=== PATIENT | male | born 1985 | race Caucasian/White ===

== ENCOUNTER 2019-07-07 20:51 | Inpatient (IN) | payer MEDICARE, OTHER ==
[~2019-07-07] VITALS: Ht 175.3 cm; Wt 86.4 kg
[2019-07-07 22:01] LABS: Basophils # (auto) 0.1 10 ^3/uL (0-0.2); Basophils % (auto) 0.6 % (0.0-2.0); Eosinophils # (auto) 0 10 ^3/uL (0-0.8); Eosinophils % (auto) 0.1 % (0.0-7.0); Hematocrit 46.1 % (41.0-53.0); Hemoglobin 15.3 g/dL (13.5-17.5); Lymphocytes # (auto) 0.6 10 ^3/uL (0.4-5.4); Lymphocytes % (auto) 3.1 % (10.0-50.0); Mean Corpuscular Hgb Conc. 33.2 g/dL (32.0-36.0); Mean Corpuscular Volume 90.5 fL (80.0-100.0); Monocytes # (auto) 1.4 10 ^3/uL (0-1.3); Monocytes % (auto) 6.8 % (0.0-12.0); Neutrophils % (auto) 89.4 % (37.0-80.0); Platelet Count (auto) 292 10^3/uL (140-450); Red Cell Distribution Width 13.2 % (11.8-14.3); White Blood Cell 20.1 10^3/uL (4.4-10.8)
[2019-07-07 22:13] LABS: Albumin 2.9 g/dL (3.4-5.0); Calcium 8.7 mg/dL (8.5-10.1); Magnesium 2.1 mg/dL (1.6-2.6); Potassium 3.7 mmol/L (3.5-5.1)
[2019-07-07 22:17] LABS: Bilirubin, Total 1.5 mg/dL (0.2-1.0); Total Protein 7.8 g/dL (6.4-8.2)
[2019-07-07 22:28] LABS: BUN/Creatinine Ratio 12.3
[2019-07-08] MEDS ORDERED: MORPHINE SULFATE 4 MG/ML SYR/VIAL IV ONE (00:15)
[2019-07-08] MEDS ORDERED: SODIUM CHLORIDE 0.9% 1,000 ML IV ONE (00:15)
[2019-07-08] MEDS ORDERED: InsuLIN REG 1unit/0.01ml Soln (100units/ml) IV ONE (00:15)
[2019-07-08] MEDS ORDERED: VANCOMYCIN 1GM/250ML 250 ML IV ONE (00:15)
[2019-07-08] MEDS ORDERED: ONDANSETRON HCL 4 MG/2 ML VIAL IV ONE (00:15)
[2019-07-08] MEDS ORDERED: PIPERACILLIN-TAZOB 3.375GM 100 ML IV ONE (00:15)
[2019-07-08] MEDS ORDERED: HYDROmorphone HCL 2 MG/ML VL IV ONE (01:45)
[2019-07-08] MEDS ORDERED: ACETAMINOPHEN 500 MG TAB PO ONE (02:30)
[2019-07-08] MEDS: SODIUM CHLORIDE 0.9% 1,000 ML IV SCH ×3 (03:27→16:01)
[2019-07-08] MEDS ORDERED: DEXTROSE (50%) 50ML SYRG IV PRN (03:30)
[2019-07-08] MEDS ORDERED: DOCUSATE SOD 100 MG CAP PO PRN (03:30)
[2019-07-08] MEDS ORDERED: VANCOMYCIN PER PHARMACY 0 MG IV SCH (03:30)
[2019-07-08] MEDS ORDERED: ONDANSETRON HCL 4 MG/2 ML VIAL IV PRN (03:30)
[2019-07-08] MEDS: MORPHINE SULFATE 4 MG/ML SYR/VIAL IV PRN ×4 (03:57→20:09)
[2019-07-08] MEDS: ACCU-CHEK COMFORT CURVE STRIP VI SCH ×5 (04:11→21:01)
[2019-07-08] MEDS: InsuLIN REG 1unit/0.01ml Soln (100units/ml) SC SCH ×5 (04:16→20:00)
[2019-07-08 06:38] LABS: Urine Bacteria NONE SEEN /hpf (None Seen); Urine Blood Negative /uL (Negative); Urine Specific Gravity 1.027 (1.001-1.035); Urine WBC 1 /hpf (0 - 3)
[2019-07-08 08:43] VITALS: BP 120/83
[2019-07-08 10:05] LABS: Basophils # (auto) 0.1 10 ^3/uL (0-0.2); Basophils % (auto) 0.5 % (0.0-2.0); Eosinophils # (auto) 0.1 10 ^3/uL (0-0.8); Eosinophils % (auto) 0.4 % (0.0-7.0); Hematocrit 44.8 % (41.0-53.0); Hemoglobin 15.3 g/dL (13.5-17.5); Lymphocytes # (auto) 1.9 10 ^3/uL (0.4-5.4); Mean Corpuscular Hemoglobin 30.6 pg (28.0-32.0); Mean Corpuscular Hgb Conc. 34.2 g/dL (32.0-36.0); Mean Corpuscular Volume 89.3 fL (80.0-100.0); Monocytes # (auto) 1.8 10 ^3/uL (0-1.3); Monocytes % (auto) 7.8 % (0.0-12.0); Neutrophils # (auto) 19.8 10 ^3/uL (1.6-8.6); Neutrophils % (auto) 83.3 % (37.0-80.0); Nucleated Red Blood Cells % 0.1 %; Platelet Count (auto) 278 10^3/uL (140-450); Red Blood Cells 5.02 10^6/uL (4.5-5.90); Red Cell Distribution Width 12.9 % (11.8-14.3); White Blood Cell 23.7 10^3/uL (4.4-10.8)
[2019-07-08 10:29] LABS: Calcium 8.4 mg/dL (8.5-10.1)
[2019-07-08 10:34] LABS: Potassium 4.3 mmol/L (3.5-5.1)
[2019-07-08] MEDS: VANCOMYCIN 750mg/250ml 250 ML IV SCH ×2 (10:39→22:00)
[2019-07-08] MEDS: ACETAMINOPHEN 325 MG TAB PO PRN ×2 (11:42→20:57)
[2019-07-08 12:13] VITALS: BP 139/76
[2019-07-08] MEDS: Glucerna Carbsteady SHAKE Vanilla 8oz PO SCH ×2 (13:09→18:39)
[2019-07-08 14:19] LABS: INR 1.04 (0.9-1.15)
[2019-07-08 16:56] VITALS: BP 124/77
[2019-07-08 22:00] VITALS: BP 123/68
[2019-07-09] MEDS: MORPHINE SULFATE 4 MG/ML SYR/VIAL IV PRN ×4 (00:07→19:35)
[2019-07-09] MEDS: SODIUM CHLORIDE 0.9% 1,000 ML IV SCH ×4 (00:50→18:22)
[2019-07-09] MEDS: ACCU-CHEK COMFORT CURVE STRIP VI SCH ×6 (00:51→20:00)
[2019-07-09] MEDS: InsuLIN REG 1unit/0.01ml Soln (100units/ml) SC SCH ×6 (04:00→20:00)
[2019-07-09] MEDS: ACETAMINOPHEN 325 MG TAB PO PRN (04:10)
[2019-07-09 05:00] VITALS: BP 112/67
[2019-07-09 05:56] LABS: Basophils # (auto) 0 10 ^3/uL (0-0.2); Basophils % (auto) 0.3 % (0.0-2.0); Eosinophils # (auto) 0.1 10 ^3/uL (0-0.8); Eosinophils % (auto) 0.5 % (0.0-7.0); Hematocrit 39.6 % (41.0-53.0); Hemoglobin 13.6 g/dL (13.5-17.5); Lymphocytes # (auto) 0.9 10 ^3/uL (0.4-5.4); Lymphocytes % (auto) 5.3 % (10.0-50.0); Mean Corpuscular Hemoglobin 30.4 pg (28.0-32.0); Mean Corpuscular Hgb Conc. 34.4 g/dL (32.0-36.0); Mean Corpuscular Volume 88.4 fL (80.0-100.0); Monocytes % (auto) 5.7 % (0.0-12.0); Neutrophils # (auto) 15.6 10 ^3/uL (1.6-8.6); Neutrophils % (auto) 88.2 % (37.0-80.0); Nucleated Red Blood Cells % 0.1 %; Platelet Count (auto) 254 10^3/uL (140-450); Red Blood Cells 4.48 10^6/uL (4.5-5.90); Red Cell Distribution Width 12.8 % (11.8-14.3); White Blood Cell 17.6 10^3/uL (4.4-10.8)
[2019-07-09 06:18] LABS: Calcium 8.2 mg/dL (8.5-10.1)
[2019-07-09 06:21] LABS: BUN/Creatinine Ratio 11.1
[2019-07-09 06:35] LABS: Potassium 2.9 mmol/L (3.5-5.1)
[2019-07-09] MEDS: POTASSIUM CHL 20MEQ/100ML 100 ML IV SCH ×2 (06:45→09:00)
[2019-07-09] MEDS ORDERED: POTASSIUM CHL 20 Meq TABLET PO ONE (06:45)
[2019-07-09] MEDS: Glucerna Carbsteady SHAKE Vanilla 8oz PO SCH ×3 (07:53→18:22)
[2019-07-09 08:51] VITALS: BP 101/72
[2019-07-09] MEDS: VANCOMYCIN 750mg/250ml 250 ML IV SCH (09:58)
[2019-07-09 13:00] VITALS: BP 105/66
[2019-07-09] MEDS ORDERED: cefTRIAXone 1GM/50ML D5W 50 ML IV ONE (13:00)
[2019-07-09] MEDS: VANCOMYCIN 1GM/250ML 250 ML IV SCH (15:52)
[2019-07-09 16:42] VITALS: BP 100/55
[2019-07-09 21:12] VITALS: BP 118/71
[2019-07-09] MEDS: HYDROcodone-ACET 5/325MG TAB PO PRN (22:54)
[2019-07-10] MEDS: MORPHINE SULFATE 4 MG/ML SYR/VIAL IV PRN ×3 (00:20→10:38)
[2019-07-10] MEDS: SODIUM CHLORIDE 0.9% 1,000 ML IV SCH ×2 (02:07→12:03)
[2019-07-10] MEDS: ACCU-CHEK COMFORT CURVE STRIP VI SCH ×6 (04:00→21:40)
[2019-07-10] MEDS: InsuLIN REG 1unit/0.01ml Soln (100units/ml) SC SCH ×6 (04:00→21:05)
[2019-07-10 05:20] VITALS: BP 126/74
[2019-07-10 06:25] LABS: Basophils # (auto) 0.1 10 ^3/uL (0-0.2); Basophils % (auto) 0.4 % (0.0-2.0); Eosinophils # (auto) 0.1 10 ^3/uL (0-0.8); Hematocrit 36.2 % (41.0-53.0); Hemoglobin 12.7 g/dL (13.5-17.5); Lymphocytes # (auto) 1.4 10 ^3/uL (0.4-5.4); Lymphocytes % (auto) 10.9 % (10.0-50.0); Mean Corpuscular Hemoglobin 30.9 pg (28.0-32.0); Mean Corpuscular Volume 88.2 fL (80.0-100.0); Monocytes # (auto) 0.8 10 ^3/uL (0-1.3); Neutrophils # (auto) 10.9 10 ^3/uL (1.6-8.6); Neutrophils % (auto) 81.7 % (37.0-80.0); Platelet Count (auto) 261 10^3/uL (140-450); Red Blood Cells 4.11 10^6/uL (4.5-5.90); Red Cell Distribution Width 13.2 % (11.8-14.3); White Blood Cell 13.3 10^3/uL (4.4-10.8)
[2019-07-10 06:59] LABS: Potassium 2.9 mmol/L (3.5-5.1)
[2019-07-10] MEDS ORDERED: POTASSIUM CHL 20 Meq TABLET PO ONE (07:15)
[2019-07-10] MEDS: POTASSIUM CHL 20MEQ/100ML 100 ML IV SCH ×4 (07:15→12:02)
[2019-07-10] MEDS: HYDROcodone-ACET 5/325MG TAB PO PRN ×3 (07:55→21:41)
[2019-07-10] MEDS: VANCOMYCIN 1GM/250ML 250 ML IV SCH ×3 (07:55→16:08)
[2019-07-10] MEDS: Glucerna Carbsteady SHAKE Vanilla 8oz PO SCH ×3 (08:41→18:35)
[2019-07-10 09:00] VITALS: BP 96/54
[2019-07-10] MEDS: INSULIN LANTUS (GLARGINE) 1 /0.01ml (100units/ml) SC SCH ×2 (10:00→22:00)
[2019-07-10] MEDS: cefTRIAXone 1GM/50ML D5W 50 ML IV SCH (10:06)
[2019-07-10 11:00] VITALS: BP 94/63
[2019-07-10] MEDS ORDERED: INSU1INJ19 SC (17:02)
[2019-07-10] MEDS ORDERED: INSU100I49 SC (17:02)
[2019-07-10 17:16] VITALS: BP 112/78
[2019-07-10 18:14] LABS: BUN/Creatinine Ratio 8.8; Potassium 3.2 mmol/L (3.5-5.1)
[2019-07-10] MEDS ORDERED: POTASSIUM CHLORIDE 40 MEQ, LIDOCAINE 1% (LOCAL ANESTH.) 4 ML in SODIUM CHL 0.9% 100 ML IV ONE (18:45)
[2019-07-10] MEDS: MORPHINE SULF INJ 2 MG/ML SYRINGE 1ML IV PRN ×2 (18:58→23:12)
[2019-07-10 22:00] VITALS: BP 108/67
[2019-07-11] MEDS: ACCU-CHEK COMFORT CURVE STRIP VI SCH ×7 (00:09→23:43)
[2019-07-11] MEDS: VANCOMYCIN 1GM/250ML 250 ML IV SCH ×5 (00:12→21:45)
[2019-07-11] MEDS: HYDROcodone-ACET 5/325MG TAB PO PRN ×3 (01:57→19:51)
[2019-07-11] MEDS: SODIUM CHLORIDE 0.9% 1,000 ML IV SCH ×2 (03:31→19:54)
[2019-07-11] MEDS: InsuLIN REG 1unit/0.01ml Soln (100units/ml) SC SCH ×7 (04:28→23:49)
[2019-07-11] MEDS: MORPHINE SULF INJ 2 MG/ML SYRINGE 1ML IV PRN ×3 (04:32→21:45)
[2019-07-11 05:00] VITALS: BP 104/59
[2019-07-11 06:43] LABS: Basophils # (auto) 0.1 10 ^3/uL (0-0.2); Basophils % (auto) 0.6 % (0.0-2.0); Eosinophils # (auto) 0.2 10 ^3/uL (0-0.8); Eosinophils % (auto) 1.8 % (0.0-7.0); Hematocrit 37.7 % (41.0-53.0); Lymphocytes # (auto) 1.6 10 ^3/uL (0.4-5.4); Lymphocytes % (auto) 17.7 % (10.0-50.0); Mean Corpuscular Hemoglobin 30.5 pg (28.0-32.0); Mean Corpuscular Hgb Conc. 34.5 g/dL (32.0-36.0); Mean Corpuscular Volume 88.5 fL (80.0-100.0); Monocytes # (auto) 0.7 10 ^3/uL (0-1.3); Monocytes % (auto) 8.2 % (0.0-12.0); Neutrophils # (auto) 6.3 10 ^3/uL (1.6-8.6); Neutrophils % (auto) 71.7 % (37.0-80.0); Nucleated Red Blood Cells % 0.1 %; Platelet Count (auto) 320 10^3/uL (140-450); Red Blood Cells 4.26 10^6/uL (4.5-5.90); Red Cell Distribution Width 12.9 % (11.8-14.3); White Blood Cell 8.7 10^3/uL (4.4-10.8)
[2019-07-11 07:11] LABS: BUN/Creatinine Ratio 15.4; Potassium 3.3 mmol/L (3.5-5.1)
[2019-07-11] MEDS: Glucerna Carbsteady SHAKE Vanilla 8oz PO SCH ×3 (08:00→17:20)
[2019-07-11] MEDS ORDERED: POTASSIUM EFFERVESENT TAB 25 MEQ PO ONE (08:30)
[2019-07-11] MEDS ORDERED: metroNIDAZOLE 500MG/100ML 100 ML IV ONE (08:30)
[2019-07-11] MEDS ORDERED: POTASSIUM CHL 20MEQ/100ML 100 ML IV ONE (08:45)
[2019-07-11] MEDS: cefTRIAXone 1GM/50ML D5W 50 ML IV SCH (09:26)
[2019-07-11 09:38] VITALS: BP 112/62
[2019-07-11] MEDS: INSULIN LANTUS (GLARGINE) 1 /0.01ml (100units/ml) SC SCH ×2 (10:00→21:45)
[2019-07-11] MEDS ORDERED: MEPERIDINE HCL (50 MG/ML) 1 ML VIAL ONE (11:35)
[2019-07-11] MEDS ORDERED: MIDAZOLAM HCL 1MG/1ML-2 ML VIAL ONE (11:35)
[2019-07-11] MEDS ORDERED: fentaNYL CITRATE 100 MCG/2 ML VL ONE (11:35)
[2019-07-11] MEDS ORDERED: NEOSTIGMINE 1 MG/ML INJ (10mg/10ML VIAL) ONE (11:36)
[2019-07-11] MEDS ORDERED: ONDANSETRON HCL 4 MG/2 ML VIAL ONE (11:36)
[2019-07-11] MEDS ORDERED: SODIUM CHLORIDE LOCK 10 ML ONE (11:36)
[2019-07-11] MEDS ORDERED: GLYCOPYRROLATE 0.2 MG/ML 1ML VIAL ONE (11:36)
[2019-07-11] MEDS ORDERED: PROPOFOL 10 MG/ML 20 ML IV ONE (11:36)
[2019-07-11] MEDS ORDERED: ROCURONIUM 10MG/ML 10ML VIAL IV ONE (11:36)
[2019-07-11] MEDS ORDERED: HYDROmorphone HCL 2 MG/ML VL IV PRN (13:00)
[2019-07-11] MEDS ORDERED: METOCLOPRAMIDE HCL 5MG/ml INJ 2ml VIAL IV PRN (13:00)
[2019-07-11] MEDS ORDERED: MORPHINE SULFATE 4 MG/ML SYR/VIAL IV PRN (13:00)
[2019-07-11] MEDS ORDERED: ACCU-CHEK COMFORT CURVE STRIP VI ONE (13:00)
[2019-07-11] MEDS ORDERED: fentaNYL CITRATE 100 MCG/2 ML VL IV PRN (13:00)
[2019-07-11 13:23] VITALS: BP 102/69
[2019-07-11] MEDS ORDERED: KETAMINE HCL 10 ML ONE (13:31)
[2019-07-11] MEDS: metroNIDAZOLE 500MG/100ML 100 ML IV SCH ×2 (15:44→23:43)
[2019-07-11 16:42] VITALS: BP 105/59
[2019-07-11 22:00] VITALS: BP 122/73
[2019-07-12] MEDS: MORPHINE SULF INJ 2 MG/ML SYRINGE 1ML IV PRN ×4 (03:55→23:05)
[2019-07-12] MEDS: VANCOMYCIN 1GM/250ML 250 ML IV SCH ×4 (03:57→22:12)
[2019-07-12] MEDS: ACCU-CHEK COMFORT CURVE STRIP VI SCH ×5 (04:05→20:00)
[2019-07-12] MEDS: InsuLIN REG 1unit/0.01ml Soln (100units/ml) SC SCH ×5 (04:08→20:00)
[2019-07-12 05:00] VITALS: BP 114/68
[2019-07-12] MEDS: HYDROcodone-ACET 5/325MG TAB PO PRN ×2 (06:00→11:40)
[2019-07-12 06:06] LABS: Basophils # (auto) 0.1 10 ^3/uL (0-0.2); Basophils % (auto) 0.9 % (0.0-2.0); Eosinophils # (auto) 0.2 10 ^3/uL (0-0.8); Eosinophils % (auto) 2.4 % (0.0-7.0); Hematocrit 40.5 % (41.0-53.0); Lymphocytes # (auto) 1.6 10 ^3/uL (0.4-5.4); Lymphocytes % (auto) 20.3 % (10.0-50.0); Mean Corpuscular Hemoglobin 30.7 pg (28.0-32.0); Mean Corpuscular Hgb Conc. 34.5 g/dL (32.0-36.0); Mean Corpuscular Volume 88.9 fL (80.0-100.0); Monocytes # (auto) 0.8 10 ^3/uL (0-1.3); Monocytes % (auto) 10.6 % (0.0-12.0); Neutrophils # (auto) 5.3 10 ^3/uL (1.6-8.6); Neutrophils % (auto) 65.8 % (37.0-80.0); Platelet Count (auto) 389 10^3/uL (140-450); Red Blood Cells 4.55 10^6/uL (4.5-5.90); Red Cell Distribution Width 13.1 % (11.8-14.3)
[2019-07-12 06:31] LABS: Potassium 3.9 mmol/L (3.5-5.1)
[2019-07-12 06:35] LABS: BUN/Creatinine Ratio 15.5; Calcium 8.5 mg/dL (8.5-10.1)
[2019-07-12] MEDS: metroNIDAZOLE 500MG/100ML 100 ML IV SCH ×2 (07:49→16:41)
[2019-07-12] MEDS: Glucerna Carbsteady SHAKE Vanilla 8oz PO SCH ×3 (07:50→16:56)
[2019-07-12 08:00] VITALS: BP 110/56
[2019-07-12] MEDS: levoFLOXacin 500MG 100 ML IV SCH (09:48)
[2019-07-12] MEDS: INSULIN LANTUS (GLARGINE) 1 /0.01ml (100units/ml) SC SCH ×2 (11:26→23:07)
[2019-07-12] MEDS: SODIUM CHLORIDE 0.9% 1,000 ML IV SCH (12:52)
[2019-07-12 16:57] VITALS: BP 110/59
[2019-07-12 22:02] VITALS: BP 114/58
[2019-07-13] MEDS: metroNIDAZOLE 500MG/100ML 100 ML IV SCH ×3 (00:56→16:45)
[2019-07-13] MEDS: ACCU-CHEK COMFORT CURVE STRIP VI SCH ×6 (00:57→20:24)
[2019-07-13] MEDS: InsuLIN REG 1unit/0.01ml Soln (100units/ml) SC SCH ×6 (01:02→20:25)
[2019-07-13] MEDS: MORPHINE SULF INJ 2 MG/ML SYRINGE 1ML IV PRN ×4 (04:33→22:19)
[2019-07-13] MEDS: VANCOMYCIN 1GM/250ML 250 ML IV SCH ×4 (04:34→22:19)
[2019-07-13 05:02] VITALS: BP 106/67
[2019-07-13] MEDS: SODIUM CHLORIDE 0.9% 1,000 ML IV SCH ×2 (05:04→21:58)
[2019-07-13 06:26] LABS: Hematocrit 41.7 % (41.0-53.0); Hemoglobin 14.4 g/dL (13.5-17.5); Mean Corpuscular Hemoglobin 30.9 pg (28.0-32.0); Mean Corpuscular Hgb Conc. 34.5 g/dL (32.0-36.0); Mean Corpuscular Volume 89.5 fL (80.0-100.0); Platelet Count (auto) 399 10^3/uL (140-450); Red Blood Cells 4.66 10^6/uL (4.5-5.90); Red Cell Distribution Width 13.1 % (11.8-14.3); White Blood Cell 8.1 10^3/uL (4.4-10.8)
[2019-07-13 06:43] LABS: Basophils % (manual) 0 (0.0-2.0); Blast Cells 0; Metamyelocytes % 0; Myelocytes % 0; Promyelocytes % 0; Reactive Lymphocytes 0
[2019-07-13 06:45] LABS: BUN/Creatinine Ratio 19.1; Calcium 8.2 mg/dL (8.5-10.1); Potassium 3.9 mmol/L (3.5-5.1)
[2019-07-13 07:02] LABS: Band Neutrophils % (manual) 3; Eosinophils % (manual) 2 (0-7); Lymphocytes % (manual) 26 (10.0-50.0); Monocytes % (manual) 9 (0-12)
[2019-07-13] MEDS: Glucerna Carbsteady SHAKE Vanilla 8oz PO SCH ×3 (07:43→17:05)
[2019-07-13 08:00] VITALS: BP 112/72
[2019-07-13] MEDS: levoFLOXacin 500MG 100 ML IV SCH (09:14)
[2019-07-13] MEDS: INSULIN LANTUS (GLARGINE) 1 /0.01ml (100units/ml) SC SCH ×2 (11:28→22:16)
[2019-07-13 12:00] VITALS: BP 108/71
[2019-07-13 16:55] VITALS: BP 113/71
[2019-07-13 22:00] VITALS: BP 121/70
[2019-07-14] MEDS: metroNIDAZOLE 500MG/100ML 100 ML IV SCH ×2 (00:57→07:46)
[2019-07-14] MEDS: ACCU-CHEK COMFORT CURVE STRIP VI SCH ×3 (00:58→07:47)
[2019-07-14] MEDS: MORPHINE SULF INJ 2 MG/ML SYRINGE 1ML IV PRN ×2 (02:08→07:47)
[2019-07-14] MEDS: InsuLIN REG 1unit/0.01ml Soln (100units/ml) SC SCH ×3 (04:00→07:46)
[2019-07-14] MEDS: VANCOMYCIN 1GM/250ML 250 ML IV SCH (04:35)
[2019-07-14 05:52] VITALS: BP 96/55
[2019-07-14] MEDS: Glucerna Carbsteady SHAKE Vanilla 8oz PO SCH (07:46)
[2019-07-14 08:00] VITALS: BP 106/68
[2019-07-14 09:00] VITALS: BP 106/68
[2019-07-14] MEDS: INSULIN LANTUS (GLARGINE) 1 /0.01ml (100units/ml) SC SCH (09:44)
[2019-07-14] MEDS: levoFLOXacin 500MG 100 ML IV SCH (09:44)
== END 2019-07-14 11:45 | disposition home health service (06) | DRG 853 ==
LOC: ER 20:52 → EDBD 20:52 → TELE 20:53 → TELE-CENTR 07-08 06:15
PROVIDERS: ADMIT Hospitalist; ATTEND Family Medicine
PROC: 0J9B0ZZ Drainage of Perineum Subcutaneous Tissue and Fascia, Open Approach (ICD-10-PCS; principal; 2019-07-11 13:09)
DX: A41.9 Sepsis, unspecified organism (principal); E10.10 Type 1 diabetes mellitus with ketoacidosis without coma; L03.311 Cellulitis of abdominal wall; E44.0 Moderate protein-calorie malnutrition; E87.1 Hypo-osmolality and hyponatremia; L02.215 Cutaneous abscess of perineum; E87.6 Hypokalemia; F17.210 Nicotine dependence, cigarettes, uncomplicated; F20.9 Schizophrenia, unspecified; F31.9 Bipolar disorder, unspecified; B95.61 Methicillin susceptible Staphylococcus aureus infection as the cause of diseases classified elsewhere; E88.09 Other disorders of plasma-protein metabolism, not elsewhere classified; Z79.4 Long term (current) use of insulin; Z91.19 Patient's noncompliance with other medical treatment and regimen
CPT/HCPCS: 36415; 74176; 76705; 80048; 80053; 80202; 81001; 82010; 82962; 83036; 83605; 83735; 84132; 85007; 85025; 85027; 85610; 87040; 87070; 87075; 87077; 87086; 87186; 87205; 96365; 96366; 96368; 96375; G0378; J0696; J1815; J1956; J2001; J2250; J2405; J2543; J2704; J3480; J3490

== ENCOUNTER 2020-11-28 11:09 | Emergency (ER) | payer MEDICAID, MEDICARE, OTHER ==
[~2020-11-28] VITALS: Ht 177.8 cm; Wt 77.1 kg
[~2020-11-28 11:09] MED LIST: INSU100I49 SC; INSU1INJ19 SC
[2020-11-28] MEDS ORDERED: SODIUM CHLORIDE 0.9% 1,000 ML IV ONE ×2 (11:15→13:45)
[2020-11-28] MEDS ORDERED: InsuLIN REG 1unit/0.01ml Soln (100units/ml) IV ONE (11:15)
[2020-11-28 11:48] LABS: Basophils # (auto) 0.1 10 ^3/uL (0-0.2); Basophils % (auto) 1.3 % (0.0-2.0); Eosinophils # (auto) 0.1 10 ^3/uL (0-0.8); Hematocrit 47.6 % (41.0-53.0); Hemoglobin 16.5 g/dL (13.5-17.5); Lymphocytes % (auto) 22.1 % (10.0-50.0); Mean Corpuscular Hemoglobin 29.9 pg (28.0-32.0); Mean Corpuscular Hgb Conc. 34.7 g/dL (32.0-36.0); Monocytes # (auto) 0.6 10 ^3/uL (0-1.3); Monocytes % (auto) 6.2 % (0.0-12.0); Neutrophils # (auto) 6.4 10 ^3/uL (1.6-8.6); Neutrophils % (auto) 69.4 % (37.0-80.0); Nucleated Red Blood Cells % 0.1 %; Red Blood Cells 5.53 10^6/uL (4.5-5.90); Red Cell Distribution Width 12.9 % (11.8-14.3); White Blood Cell 9.3 10^3/uL (4.4-10.8)
[2020-11-28 12:01] LABS: Albumin 3.1 g/dL (3.4-5.0); BUN/Creatinine Ratio 16.4; Calcium 8.7 mg/dL (8.5-10.1); Magnesium 2.2 mg/dL (1.6-2.6); Potassium 4.3 mmol/L (3.5-5.1)
[2020-11-28 12:10] LABS: Bilirubin, Total 0.7 mg/dL (0.2-1.0); Total Protein 6.9 g/dL (6.4-8.2)
[2020-11-28 13:44] LABS: Urine Bacteria NONE SEEN /hpf (None Seen); Urine Blood Negative /uL (Negative); Urine Specific Gravity 1.034 (1.001-1.035); Urine WBC <1 /hpf (0 - 3)
[2020-11-28] MEDS ORDERED: INSU1INJ19 SC (14:07)
[2020-11-28] MEDS ORDERED: INSU100I4 SC (14:07)
[2020-11-28] MEDS ORDERED: BLOO-200 XX (14:11)
[2020-11-28] MEDS ORDERED: INSULIN LANTUS (GLARGINE) 1 /0.01ml (100units/ml) SC SCH (14:15)
[2020-11-28 16:07] VITALS: BP 112/74
== END 2020-11-28 15:45 | disposition home or self-care (01) ==
LOC: EDBD 11:09 → ER 11:09
DX: E11.65 Type 2 diabetes mellitus with hyperglycemia (principal); I10 Essential (primary) hypertension; F17.210 Nicotine dependence, cigarettes, uncomplicated; Z20.822 Contact with and (suspected) exposure to COVID-19; Z90.49 Acquired absence of other specified parts of digestive tract
CPT/HCPCS: 36415; 71045; 80053; 81001; 82010; 82962; 83735; 85025; 87426; 93005; 96361; 96372; 96374; 99285; J1815; J7030